=== PATIENT | female | born 1990 | race Caucasian/White ===

== ENCOUNTER → 2025-11-14 12:46 | Outpatient (REF) | payer OTHER, SELFPAY | LOC: PNTC 12:46 | PROVIDERS: ATTENDING PHYSICIAN Obstetrics & Gynecology | DX: Z36.0 Encounter for antenatal screening for chromosomal anomalies (principal); Z36.82 Encounter for antenatal screening for nuchal translucency | CPT/HCPCS: 76801; 76813 ==